=== PATIENT | female | born 1995 | race Native Hawaiian/Other Pacific Islander ===

== ENCOUNTER 2016-11-05 15:19 | Emergency (ER) | payer SELFPAY ==
[~2016-11-05] VITALS: Ht 157.5 cm; Wt 120.2 kg
[~2016-11-05 15:19] MED LIST: LISI5TAB10 PO
[2016-11-05 15:56] LABS: PLATELET COUNT 269 K/uL (152-353)
[2016-11-05 16:02] LABS: POTASSIUM 3.2 mmol/L (3.6-5.2); SODIUM 136 mmol/L (136-145)
[2016-11-05 16:45] VITALS: BP 130/75; TEMP 98
[2017-03-31] MEDS ORDERED: ACET-689 PO (20:54)
[2017-03-31] MEDS ORDERED: BACTRIM1 TAB PO (20:55)
[2017-03-31] MEDS ORDERED: CEPH500C20 PO (20:55)
[2017-03-31] MEDS ORDERED: ADVIL200 M1 OR (20:57)
[2017-03-31] MEDS ORDERED: [UNRECOGNIZED DRUG - CODE] EX (21:21)
== END 2016-11-05 16:45 | disposition home or self-care (01) ==
LOC: ED 15:19
DX: N39.0 Urinary tract infection, site not specified (principal)
CPT/HCPCS: 36415; 80053; 81000; 81025; 85027; 87077; 87086; 87088; 87186; 99283

== ENCOUNTER 2016-11-22 15:51 | Emergency (ER) | payer SELFPAY ==
[~2016-11-22] VITALS: Ht 157.5 cm; Wt 118.8 kg
[2016-11-22 18:18] LABS: POTASSIUM 3.6 mmol/L (3.6-5.2); SODIUM 137 mmol/L (136-145)
[2016-11-22 18:30] LABS: PLATELET COUNT 333 K/uL (152-353)
[2016-11-22 18:33] LABS: PARTIAL THROMBOPLASTIN TIME 25.9 SECONDS (24.5-33.6)
[2016-11-22 19:26] VITALS: BP 120/80; TEMP 98
[2017-03-31] MEDS ORDERED: ACET-689 PO (20:54)
[2017-03-31] MEDS ORDERED: BACTRIM1 TAB PO (20:55)
[2017-03-31] MEDS ORDERED: CEPH500C20 PO (20:55)
[2017-03-31] MEDS ORDERED: ADVIL200 M1 OR (20:57)
[2017-03-31] MEDS ORDERED: [UNRECOGNIZED DRUG - CODE] EX (21:21)
== END 2016-11-22 19:30 | disposition home or self-care (01) ==
LOC: ED 15:51
PROVIDERS: Emergency Medicine
DX: O46.90 Antepartum hemorrhage, unspecified, unspecified trimester (principal)
CPT/HCPCS: 36415; 80053; 80307; 81000; 82150; 83690; 84702; 85027; 85610; 85730; 99283; G0479

== ENCOUNTER 2016-12-06 21:16 | Emergency (ER) | payer SELFPAY ==
[~2016-12-06] VITALS: Ht 157.5 cm; Wt 117.9 kg
[2016-12-06 21:32] VITALS: BP 135/80; TEMP 98
[2017-03-31] MEDS ORDERED: ACET-689 PO (20:54)
[2017-03-31] MEDS ORDERED: CEPH500C20 PO (20:55)
[2017-03-31] MEDS ORDERED: BACTRIM1 TAB PO (20:55)
[2017-03-31] MEDS ORDERED: ADVIL200 M1 OR (20:57)
[2017-03-31] MEDS ORDERED: [UNRECOGNIZED DRUG - CODE] EX (21:21)
== END 2016-12-06 21:32 | disposition home or self-care (01) ==
LOC: ED 21:16
DX: R11.0 Nausea (principal); X58.XXXA Exposure to other specified factors, initial encounter; Y92.098 Other place in other non-institutional residence as the place of occurrence of the external cause
CPT/HCPCS: 99281

== ENCOUNTER 2017-01-20 13:42 | Emergency (ER) | payer OTHER ==
[~2017-01-20] VITALS: Ht 152.4 cm; Wt 117.9 kg
[2017-01-20 14:48] VITALS: BP 145/93; TEMP 98.3
[2017-03-31] MEDS ORDERED: ACET-689 PO (20:54)
[2017-03-31] MEDS ORDERED: CEPH500C20 PO (20:55)
[2017-03-31] MEDS ORDERED: BACTRIM1 TAB PO (20:55)
[2017-03-31] MEDS ORDERED: ADVIL200 M1 OR (20:57)
[2017-03-31] MEDS ORDERED: [UNRECOGNIZED DRUG - CODE] EX (21:21)
== END 2017-01-20 14:50 | disposition home or self-care (01) ==
LOC: ED 13:42
DX: R68.84 Jaw pain (principal); K02.9 Dental caries, unspecified; K04.7 Periapical abscess without sinus
CPT/HCPCS: 96372; 99283; J0696; J1200

== ENCOUNTER 2017-01-25 18:38 | Outpatient (CLI) | payer OTHER ==
[2017-03-31] MEDS ORDERED: ACET-689 PO (20:54)
[2017-03-31] MEDS ORDERED: CEPH500C20 PO (20:55)
[2017-03-31] MEDS ORDERED: BACTRIM1 TAB PO (20:55)
[2017-03-31] MEDS ORDERED: ADVIL200 M1 OR (20:57)
[2017-03-31] MEDS ORDERED: [UNRECOGNIZED DRUG - CODE] EX (21:21)
== END 2017-01-25 18:45 | disposition short-term general hospital (02) ==
LOC: AMB 18:38
DX: S60.521A Blister (nonthermal) of right hand, initial encounter (principal)
CPT/HCPCS: A0425; A0429

== ENCOUNTER 2017-02-06 10:45 | Emergency (ER) | payer OTHER ==
[~2017-02-06] VITALS: Ht 157.5 cm; Wt 113.4 kg
[2017-02-06 10:50] VITALS: TEMP 98.3
[2017-02-06 13:03] VITALS: BP 124/68
[2017-03-31] MEDS ORDERED: ACET-689 PO (20:54)
[2017-03-31] MEDS ORDERED: BACTRIM1 TAB PO (20:55)
[2017-03-31] MEDS ORDERED: CEPH500C20 PO (20:55)
[2017-03-31] MEDS ORDERED: ADVIL200 M1 OR (20:57)
[2017-03-31] MEDS ORDERED: [UNRECOGNIZED DRUG - CODE] EX (21:21)
== END 2017-02-06 13:01 | disposition home or self-care (01) ==
LOC: ED 10:45
DX: R51 Headache (principal); G91.9 Hydrocephalus, unspecified; G93.0 Cerebral cysts
CPT/HCPCS: 81000; 81025; 99283

== ENCOUNTER 2017-02-14 13:34 | Emergency (ER) | payer OTHER ==
[~2017-02-14] VITALS: Ht 157.5 cm; Wt 115.2 kg
[2017-02-14 15:32] VITALS: BP 130/75; TEMP 98
[2017-03-31] MEDS ORDERED: ACET-689 PO (20:54)
[2017-03-31] MEDS ORDERED: BACTRIM1 TAB PO (20:55)
[2017-03-31] MEDS ORDERED: CEPH500C20 PO (20:55)
[2017-03-31] MEDS ORDERED: ADVIL200 M1 OR (20:57)
[2017-03-31] MEDS ORDERED: [UNRECOGNIZED DRUG - CODE] EX (21:21)
== END 2017-02-14 15:37 | disposition home or self-care (01) ==
LOC: ED 13:34
DX: G43.909 Migraine, unspecified, not intractable, without status migrainosus (principal)
CPT/HCPCS: 96361; 96374; 96375; 99284; J1100; J1200; J1885; J2405

== ENCOUNTER 2017-02-28 15:49 | Emergency (ER) | payer OTHER ==
[~2017-02-28] VITALS: Ht 157.5 cm; Wt 115.2 kg
[2017-02-28 16:05] VITALS: TEMP 98.1
[2017-02-28 16:18] VITALS: BP 156/95
[2017-03-31] MEDS ORDERED: ACET-689 PO (20:54)
[2017-03-31] MEDS ORDERED: CEPH500C20 PO (20:55)
[2017-03-31] MEDS ORDERED: BACTRIM1 TAB PO (20:55)
[2017-03-31] MEDS ORDERED: ADVIL200 M1 OR (20:57)
[2017-03-31] MEDS ORDERED: [UNRECOGNIZED DRUG - CODE] EX (21:21)
== END 2017-02-28 16:26 | disposition home or self-care (01) ==
LOC: ED 15:49
DX: B35.9 Dermatophytosis, unspecified (principal)
CPT/HCPCS: 99281

== ENCOUNTER 2017-03-16 11:30 | Emergency (ER) | payer OTHER ==
[~2017-03-16] VITALS: Ht 157.5 cm; Wt 115.7 kg
[2017-03-16 11:45] VITALS: BP 134/66; TEMP 97.7
[2017-03-31] MEDS ORDERED: ACET-689 PO (20:54)
[2017-03-31] MEDS ORDERED: CEPH500C20 PO (20:55)
[2017-03-31] MEDS ORDERED: BACTRIM1 TAB PO (20:55)
[2017-03-31] MEDS ORDERED: ADVIL200 M1 OR (20:57)
[2017-03-31] MEDS ORDERED: [UNRECOGNIZED DRUG - CODE] EX (21:21)
== END 2017-03-16 13:50 | disposition home or self-care (01) ==
LOC: ED 11:30
DX: S20.211A Contusion of right front wall of thorax, initial encounter (principal); W19.XXXA Unspecified fall, initial encounter; Y92.098 Other place in other non-institutional residence as the place of occurrence of the external cause
CPT/HCPCS: 99282

== ENCOUNTER 2017-03-21 14:51 | Emergency (ER) | payer OTHER ==
[~2017-03-21] VITALS: Ht 157.5 cm; Wt 113.4 kg
[2017-03-21 16:37] VITALS: BP 125/72; TEMP 97.9
[2017-03-31] MEDS ORDERED: ACET-689 PO (20:54)
[2017-03-31] MEDS ORDERED: CEPH500C20 PO (20:55)
[2017-03-31] MEDS ORDERED: BACTRIM1 TAB PO (20:55)
[2017-03-31] MEDS ORDERED: ADVIL200 M1 OR (20:57)
[2017-03-31] MEDS ORDERED: [UNRECOGNIZED DRUG - CODE] EX (21:21)
== END 2017-03-21 16:39 | disposition home or self-care (01) ==
LOC: ED 14:51
DX: S80.01XA Contusion of right knee, initial encounter (principal); R51 Headache; W19.XXXA Unspecified fall, initial encounter
CPT/HCPCS: 96372; 99283; J2360

== ENCOUNTER 2017-03-27 17:23 | Emergency (ER) | payer OTHER ==
[~2017-03-27] VITALS: Ht 157.5 cm; Wt 113.4 kg
[2017-03-27 18:27] VITALS: BP 152/97; TEMP 98.3
[2017-03-31] MEDS ORDERED: ACET-689 PO (20:54)
[2017-03-31] MEDS ORDERED: CEPH500C20 PO (20:55)
[2017-03-31] MEDS ORDERED: BACTRIM1 TAB PO (20:55)
[2017-03-31] MEDS ORDERED: ADVIL200 M1 OR (20:57)
[2017-03-31] MEDS ORDERED: [UNRECOGNIZED DRUG - CODE] EX (21:21)
== END 2017-03-27 18:35 | disposition home or self-care (01) ==
LOC: ED 17:23
DX: L03.111 Cellulitis of right axilla (principal)
CPT/HCPCS: 99281

== ENCOUNTER 2017-05-19 14:03 | Emergency (ER) | payer OTHER ==
[~2017-05-19] VITALS: Ht 157.5 cm; Wt 113.4 kg
[~2017-05-19 14:03] MED LIST changes: +ACET-689 PO; +ADVIL200 M1 OR; +BACTRIM1 TAB PO; +CEPH500C20 PO; +[UNRECOGNIZED DRUG - CODE] EX
[2017-05-19 14:40] VITALS: BP 136/83; TEMP 97.3
== END 2017-05-19 14:45 | disposition home or self-care (01) ==
LOC: ED 14:03
DX: R21 Rash and other nonspecific skin eruption (principal)
CPT/HCPCS: 99281

== ENCOUNTER 2017-07-11 11:54 | Emergency (ER) | payer OTHER ==
[~2017-07-11] VITALS: Ht 157.5 cm; Wt 117.9 kg
[2017-07-11 12:00] VITALS: TEMP 98.6
[2017-07-11 12:55] VITALS: BP 143/84
== END 2017-07-11 12:55 | disposition home or self-care (01) ==
LOC: ED 11:54
DX: L03.211 Cellulitis of face (principal); K04.7 Periapical abscess without sinus
CPT/HCPCS: 99281

== ENCOUNTER 2017-08-09 17:05 | Emergency (ER) | payer OTHER ==
[~2017-08-09] VITALS: Ht 157.5 cm; Wt 117.9 kg
[2017-08-09 17:10] VITALS: TEMP 98
[2017-08-09] MEDS ORDERED: LISI10TA11 PO (17:20)
[2017-08-09 17:43] LABS: PLATELET COUNT 310 K/uL (152-353)
[2017-08-09 17:52] LABS: POTASSIUM 3.9 mmol/L (3.6-5.2); SODIUM 135 mmol/L (136-145)
[2017-08-09 18:13] VITALS: BP 137/93
== END 2017-08-09 18:15 | disposition home or self-care (01) ==
LOC: ED 17:05
DX: R10.9 Unspecified abdominal pain (principal)
CPT/HCPCS: 36415; 80053; 84702; 85027; 99283

== ENCOUNTER 2017-08-20 14:14 | Emergency (ER) | payer OTHER ==
[~2017-08-20] VITALS: Ht 157.5 cm; Wt 113.4 kg
[~2017-08-20 14:14] MED LIST changes: +LISI10TA11 PO
[2017-08-20 15:50] VITALS: BP 134/85; TEMP 97.8
== END 2017-08-20 15:50 | disposition home or self-care (01) ==
LOC: ED 14:14
DX: R51 Headache (principal); B34.9 Viral infection, unspecified; J02.9 Acute pharyngitis, unspecified
CPT/HCPCS: 81000; 81025; 96372; 99283; J1885; J2060; J2550

== ENCOUNTER 2017-09-11 10:52 | Emergency (ER) | payer OTHER ==
[~2017-09-11] VITALS: Ht 157.5 cm; Wt 117.9 kg
[2017-09-11 11:07] VITALS: BP 143/93; TEMP 98.1
== END 2017-09-11 11:45 | disposition home or self-care (01) ==
LOC: ED 10:52
DX: T78.49XA Other allergy, initial encounter (principal)
CPT/HCPCS: 99282

== ENCOUNTER 2017-09-12 19:29 | Emergency (ER) | payer OTHER ==
[~2017-09-12] VITALS: Ht 157.5 cm; Wt 127.9 kg
[2017-09-12 20:00] VITALS: BP 145/94; TEMP 98.5
== END 2017-09-12 20:05 | disposition home or self-care (01) ==
LOC: ED 19:29
DX: J32.0 Chronic maxillary sinusitis (principal)
CPT/HCPCS: 99281

== ENCOUNTER 2017-09-19 23:08 | Emergency (ER) | payer OTHER ==
[~2017-09-19] VITALS: Ht 157.5 cm; Wt 117.9 kg
[2017-09-20 00:42] VITALS: BP 136/85; TEMP 98.6
== END 2017-09-20 00:48 | disposition home or self-care (01) ==
LOC: ED 23:08
DX: R30.0 Dysuria (principal)
CPT/HCPCS: 81000; 99282

== ENCOUNTER 2017-09-24 13:28 | Emergency (ER) | payer OTHER ==
[~2017-09-24] VITALS: Ht 157.5 cm; Wt 117.9 kg
[2017-09-24 14:00] VITALS: BP 147/87; TEMP 98.3
[2017-09-24 15:33] LABS: PLATELET COUNT 308 K/uL (152-353)
[2017-09-24 15:42] LABS: SODIUM 136 mmol/L (136-145)
== END 2017-09-24 16:30 | disposition home or self-care (01) ==
LOC: ED 13:28
PROVIDERS: Family Medicine
DX: G91.9 Hydrocephalus, unspecified (principal)
CPT/HCPCS: 80048; 85027; 99283

== ENCOUNTER 2017-09-28 23:29 | Emergency (ER) | payer OTHER ==
[~2017-09-28] VITALS: Ht 157.5 cm; Wt 132.5 kg
[2017-09-29 00:40] VITALS: BP 148/67; TEMP 98.6
== END 2017-09-29 00:46 | disposition home or self-care (01) ==
LOC: ED 23:29
DX: K64.4 Residual hemorrhoidal skin tags (principal)
CPT/HCPCS: 99284

== ENCOUNTER 2017-10-02 21:44 | Emergency (ER) | payer OTHER ==
[~2017-10-02] VITALS: Ht 157.5 cm; Wt 117.9 kg
[2017-10-02 22:20] VITALS: BP 135/94; TEMP 98.9
== END 2017-10-02 22:24 | disposition home or self-care (01) ==
LOC: ED 21:44
DX: K02.9 Dental caries, unspecified (principal); K04.7 Periapical abscess without sinus
CPT/HCPCS: 99281

== ENCOUNTER 2017-10-15 16:50 | Outpatient (CLI) | payer OTHER | END 2017-10-15 16:59 | disposition short-term general hospital (02) | LOC: AMB 16:50 | DX: R05 Cough (principal); R09.81 Nasal congestion | CPT/HCPCS: A0425; A0429 ==

== ENCOUNTER 2017-10-15 17:12 | Emergency (ER) | payer OTHER ==
[~2017-10-15] VITALS: Ht 157.5 cm; Wt 117.9 kg
[2017-10-15 18:36] LABS: PLATELET COUNT 227 K/uL (152-353)
[2017-10-15 19:34] VITALS: BP 150/84; TEMP 98.5
== END 2017-10-15 19:34 | disposition home or self-care (01) ==
LOC: ED 17:12
DX: J06.9 Acute upper respiratory infection, unspecified (principal); B34.9 Viral infection, unspecified
CPT/HCPCS: 36415; 85027; 96372; 99283; J1885

== ENCOUNTER 2017-10-26 14:40 | Emergency (ER) | payer OTHER ==
[~2017-10-26] VITALS: Ht 157.5 cm; Wt 113.4 kg
[2017-10-26 14:33] VITALS: TEMP 97.8
[2017-10-26 16:21] LABS: PLATELET COUNT 343 K/uL (152-353)
[2017-10-26 16:24] LABS: POTASSIUM 4.3 mmol/L (3.6-5.2)
[2017-10-26 16:39] VITALS: BP 132/78
== END 2017-10-26 16:43 | disposition home or self-care (01) ==
LOC: ED 14:40
PROVIDERS: Emergency Medicine
DX: M54.42 Lumbago with sciatica, left side (principal); M54.10 Radiculopathy, site unspecified
CPT/HCPCS: 36415; 36416; 80053; 81000; 83735; 85027; 99283

== ENCOUNTER 2017-11-06 17:53 | Emergency (ER) | payer OTHER ==
[~2017-11-06] VITALS: Ht 157.5 cm; Wt 113.4 kg
[2017-11-06 18:40] LABS: PLATELET COUNT 312 K/uL (152-353)
[2017-11-06 18:49] LABS: POTASSIUM 3.4 mmol/L (3.6-5.2)
[2017-11-06 19:54] VITALS: BP 140/86; TEMP 97.9
== END 2017-11-06 19:55 | disposition home or self-care (01) ==
LOC: ED 17:53
DX: R07.89 Other chest pain (principal); L30.4 Erythema intertrigo
CPT/HCPCS: 80053; 85027; 93005; 99283

== ENCOUNTER 2017-11-25 23:00 | Emergency (ER) | payer OTHER ==
[~2017-11-25] VITALS: Ht 157.5 cm; Wt 113.4 kg
[2017-11-26 01:16] VITALS: BP 130/90; TEMP 98.1
== END 2017-11-26 01:17 | disposition home or self-care (01) ==
LOC: ED 23:00
DX: S93.492A Sprain of other ligament of left ankle, initial encounter (principal); X50.1XXA Overexertion from prolonged static or awkward postures, initial encounter; Y92.098 Other place in other non-institutional residence as the place of occurrence of the external cause
CPT/HCPCS: 99282

== ENCOUNTER 2017-12-23 19:57 | Emergency (ER) | payer OTHER ==
[~2017-12-23] VITALS: Ht 157.5 cm; Wt 113.4 kg
[2017-12-23 20:15] VITALS: BP 143/61; TEMP 98.5
== END 2017-12-23 20:45 | disposition home or self-care (01) ==
LOC: ED 19:57
DX: J02.9 Acute pharyngitis, unspecified (principal)
CPT/HCPCS: 99281

== ENCOUNTER 2017-12-26 15:14 | Emergency (ER) | payer OTHER ==
[~2017-12-26] VITALS: Ht 157.5 cm; Wt 113.4 kg
[2017-12-26 15:15] VITALS: BP 150/98; TEMP 97.9
== END 2017-12-26 15:45 | disposition home or self-care (01) ==
LOC: ED 15:14
DX: R21 Rash and other nonspecific skin eruption (principal)

== ENCOUNTER 2018-01-20 13:46 | Outpatient (CLI) | payer OTHER | END 2018-01-20 13:55 | disposition short-term general hospital (02) | LOC: AMB 13:46 | DX: R51 Headache (principal) | CPT/HCPCS: A0425; A0429 ==

== ENCOUNTER 2018-01-20 13:58 | Emergency (ER) | payer OTHER ==
[~2018-01-20] VITALS: Ht 157.5 cm; Wt 113.4 kg
== END 2018-01-20 15:05 | disposition home or self-care (01) ==
LOC: ED 13:58
DX: R51 Headache (principal); R30.0 Dysuria
CPT/HCPCS: 99281

== ENCOUNTER 2018-01-24 23:05 | Outpatient (CLI) | payer OTHER ==
[2018-01-24 23:52] LABS: PLATELET COUNT 299 K/uL (152-353)
[2018-01-25 01:04] LABS: POTASSIUM 3.9 mmol/L (3.6-5.2)
== END 2018-01-24 23:50 | disposition home or self-care (01) ==
LOC: LABW 23:05
PROVIDERS: Internal Medicine
DX: I10 Essential (primary) hypertension (principal); R73.09 Other abnormal glucose; R79.89 Other specified abnormal findings of blood chemistry
CPT/HCPCS: 36415; 80053; 81000; 82088; 82306; 82436; 82550; 82570; 82607; 82728; 82746; 83036; 83540; 83550; 83735; 83835; 83970; 84100; 84133; 84155; 84244; 84300; 84439; 84443; 84550; 85027; 86039

== ENCOUNTER 2018-03-21 00:03 | Emergency (ER) | payer OTHER ==
[~2018-03-21] VITALS: Ht 157.5 cm; Wt 146.1 kg
[2018-03-21 00:20] VITALS: BP 145/83; TEMP 98
== END 2018-03-21 00:36 | disposition home or self-care (01) ==
LOC: ED 00:03
DX: R51 Headache (principal)
CPT/HCPCS: 99281

== ENCOUNTER 2018-08-11 13:10 | Outpatient (CLI) | payer OTHER | END 2018-08-11 13:12 | disposition short-term general hospital (02) | LOC: AMB 13:10 | DX: R11.10 Vomiting, unspecified (principal) | CPT/HCPCS: A0425; A0429 ==

== ENCOUNTER 2018-08-11 13:21 | Emergency (ER) | payer OTHER ==
[~2018-08-11] VITALS: Ht 157.5 cm; Wt 146.1 kg
[2018-08-11 13:22] VITALS: TEMP 97
[2018-08-11 14:34] LABS: PLATELET COUNT 284 K/uL (152-353)
[2018-08-11 14:38] LABS: POTASSIUM 3.7 mmol/L (3.6-5.2)
[2018-08-11 15:13] VITALS: BP 120/88
== END 2018-08-11 15:15 | disposition home or self-care (01) ==
LOC: ED 13:21
DX: R11.2 Nausea with vomiting, unspecified (principal)
CPT/HCPCS: 80053; 81000; 81025; 85027; 99283

== ENCOUNTER 2018-09-04 19:58 | Outpatient (CLI) | payer OTHER | END 2018-09-04 20:00 | disposition short-term general hospital (02) | LOC: AMB 19:58 | DX: M54.89 Other dorsalgia (principal) | CPT/HCPCS: A0425; A0429 ==

== ENCOUNTER 2018-09-04 20:09 | Emergency (ER) | payer OTHER ==
[~2018-09-04] VITALS: Ht 157.5 cm; Wt 146.1 kg
[2018-09-04 22:25] VITALS: BP 151/81; TEMP 98
== END 2018-09-04 22:36 | disposition home or self-care (01) ==
LOC: ED 20:09
DX: M54.5 Low back pain (principal); M47.896 Other spondylosis, lumbar region
CPT/HCPCS: 81000; 99283; J1885

== ENCOUNTER 2018-09-28 10:50 | Outpatient (CLI) | payer OTHER | END 2018-09-28 10:52 | disposition short-term general hospital (02) | LOC: AMB 10:50 | DX: M25.531 Pain in right wrist (principal) | CPT/HCPCS: A0425; A0429 ==

== ENCOUNTER 2018-09-28 10:55 | Emergency (ER) | payer OTHER ==
[~2018-09-28] VITALS: Ht 157.5 cm; Wt 146.1 kg
[2018-09-28 12:00] VITALS: BP 128/86; TEMP 98
== END 2018-09-28 12:11 | disposition home or self-care (01) ==
LOC: ED 10:55
DX: S63.591A Other specified sprain of right wrist, initial encounter (principal); S63.681A Other sprain of right thumb, initial encounter; W18.39XA Other fall on same level, initial encounter; Y92.89 Other specified places as the place of occurrence of the external cause
CPT/HCPCS: 99283

== ENCOUNTER 2019-03-03 17:34 | Emergency (ER) | payer OTHER ==
[~2019-03-03] VITALS: Ht 157.5 cm; Wt 146.1 kg
[2019-03-03] MEDS ORDERED: DOXYCYCL HYC100 MG PO (17:53)
[2019-03-03 18:20] VITALS: BP 132/84; TEMP 97.6
== END 2019-03-03 18:20 | disposition home or self-care (01) ==
LOC: ED 17:34
DX: S61.211A Laceration without foreign body of left index finger without damage to nail, initial encounter (principal); L08.9 Local infection of the skin and subcutaneous tissue, unspecified; W22.8XXA Striking against or struck by other objects, initial encounter
CPT/HCPCS: 99282

== ENCOUNTER 2019-04-27 19:25 | Emergency (ER) | payer OTHER ==
[~2019-04-27] VITALS: Ht 157.5 cm; Wt 146.1 kg
[~2019-04-27 19:25] MED LIST changes: +DOXYCYCL HYC100 MG PO
[2019-04-27 20:07] VITALS: BP 164/90; TEMP 98.2
== END 2019-04-27 20:09 | disposition home or self-care (01) ==
LOC: ED 19:25
DX: B37.3 Candidiasis of vulva and vagina (principal)
CPT/HCPCS: 99281

== ENCOUNTER 2019-05-09 23:28 | Emergency (ER) | payer OTHER ==
[~2019-05-09] VITALS: Ht 157.5 cm; Wt 146.1 kg
[2019-05-10 00:35] LABS: PLATELET COUNT 302 K/uL (152-353)
[2019-05-10 00:48] LABS: POTASSIUM 3.6 mmol/L (3.6-5.2); SODIUM 137 mmol/L (136-145)
[2019-05-10 00:54] LABS: PARTIAL THROMBOPLASTIN TIME 22.5 SECONDS (24.5-33.6)
[2019-05-10 03:08] VITALS: BP 122/64; TEMP 98.2
== END 2019-05-10 03:08 | disposition home or self-care (01) ==
LOC: ED 23:28
PROVIDERS: Hospitalist
DX: F41.1 Generalized anxiety disorder (principal); O23.43 Unspecified infection of urinary tract in pregnancy, third trimester; G43.909 Migraine, unspecified, not intractable, without status migrainosus; R00.0 Tachycardia, unspecified
CPT/HCPCS: 36415; 80053; 81000; 81025; 82550; 83880; 84484; 85027; 85379; 85610; 85730; 87077; 87086; 87088; 87186; 93005; 96374; 96375; 99284; J1200; J2405

== ENCOUNTER 2019-12-27 14:56 | Emergency (ER) | payer OTHER ==
[~2019-12-27] VITALS: Ht 157.5 cm; Wt 146.1 kg
[2019-12-27 15:10] VITALS: TEMP 98.2
[2019-12-27 15:58] LABS: PLATELET COUNT 324 K/uL (152-353)
[2019-12-27 16:55] VITALS: BP 155/72
== END 2019-12-27 16:55 | disposition home or self-care (01) ==
LOC: ED 14:56
PROVIDERS: Emergency Medicine
DX: J06.9 Acute upper respiratory infection, unspecified (principal); F17.210 Nicotine dependence, cigarettes, uncomplicated
CPT/HCPCS: 36415; 80053; 85027; 87502; 87651; 99283

== ENCOUNTER 2020-02-21 15:30 | Emergency (ER) | payer OTHER ==
[~2020-02-21] VITALS: Ht 157.5 cm; Wt 146.1 kg
[2020-02-21 15:30] VITALS: TEMP 97.5
[2020-02-21 16:44] VITALS: BP 132/80
== END 2020-02-21 16:45 | disposition home or self-care (01) ==
LOC: ED 15:30
DX: S39.012A Strain of muscle, fascia and tendon of lower back, initial encounter (principal); R51 Headache; X58.XXXA Exposure to other specified factors, initial encounter; Y92.89 Other specified places as the place of occurrence of the external cause
CPT/HCPCS: 96372; 99283; J1885

== ENCOUNTER 2020-09-04 13:32 | Emergency (ER) | payer OTHER ==
[~2020-09-04] VITALS: Ht 157.5 cm; Wt 146.1 kg
[2020-09-04 13:32] VITALS: TEMP 99.1
[2020-09-04 15:02] VITALS: BP 150/89
== END 2020-09-04 15:04 | disposition home or self-care (01) ==
LOC: ED 13:32
DX: K04.7 Periapical abscess without sinus (principal); I10 Essential (primary) hypertension; F17.210 Nicotine dependence, cigarettes, uncomplicated
CPT/HCPCS: 96372; 99283; 99284; J1885

== ENCOUNTER 2020-11-14 13:29 | Emergency (ER) | payer OTHER ==
[~2020-11-14] VITALS: Ht 157.5 cm; Wt 146.1 kg
[2020-11-14 18:20] VITALS: BP 152/95; TEMP 98.6
== END 2020-11-14 18:20 | disposition home or self-care (01) ==
LOC: ED 13:29
DX: N30.11 Interstitial cystitis (chronic) with hematuria (principal); S63.591A Other specified sprain of right wrist, initial encounter; W18.39XA Other fall on same level, initial encounter; Y92.89 Other specified places as the place of occurrence of the external cause
CPT/HCPCS: 81000; 81025; 96372; 99283; J1885; J2405

== ENCOUNTER 2021-01-02 08:36 | Emergency (ER) | payer OTHER ==
[~2021-01-02] VITALS: Ht 157.5 cm; Wt 97.5 kg
[2021-01-02 08:42] VITALS: TEMP 97.3
[2021-01-02 09:45] VITALS: BP 144/89
== END 2021-01-02 09:56 | disposition home or self-care (01) ==
LOC: ED 08:36
DX: M25.531 Pain in right wrist (principal); M79.671 Pain in right foot; L84 Corns and callosities
CPT/HCPCS: 96372; 99283; J1885

== ENCOUNTER 2022-09-19 09:30 | Emergency (ER) | payer OTHER ==
[~2022-09-19] VITALS: Ht 157.5 cm; Wt 158.8 kg
[2022-09-19 09:30] VITALS: TEMP 97.9
[2022-09-19 10:14] LABS: PLATELET COUNT 313 K/uL (152-353)
[2022-09-19 10:18] LABS: POTASSIUM 4.1 mmol/L (3.6-5.2)
[2022-09-19 10:30] VITALS: BP 145/95
== END 2022-09-19 10:39 | disposition home or self-care (01) ==
LOC: ED 09:30
PROVIDERS: Emergency Medicine
DX: F41.8 Other specified anxiety disorders (principal); R22.0 Localized swelling, mass and lump, head; I10 Essential (primary) hypertension; F17.210 Nicotine dependence, cigarettes, uncomplicated
CPT/HCPCS: 36415; 80048; 85027; 99283

== ENCOUNTER 2022-09-24 10:22 | Emergency (ER) | payer OTHER ==
[~2022-09-24] VITALS: Ht 157.5 cm; Wt 158.8 kg
[2022-09-24 10:22] VITALS: BP 144/84; TEMP 98.2
== END 2022-09-24 11:25 | disposition home or self-care (01) ==
LOC: ED 10:22
DX: S93.491A Sprain of other ligament of right ankle, initial encounter (principal); X50.1XXA Overexertion from prolonged static or awkward postures, initial encounter; Y93.01 Activity, walking, marching and hiking; Y92.89 Other specified places as the place of occurrence of the external cause
CPT/HCPCS: 99282; J1885

== ENCOUNTER 2022-10-27 13:55 | Emergency (ER) | payer OTHER ==
[~2022-10-27] VITALS: Ht 157.5 cm; Wt 158.8 kg
[2022-10-27 13:55] VITALS: BP 133/87; TEMP 97.6
== END 2022-10-27 15:31 | disposition home or self-care (01) ==
LOC: ED 13:55
DX: S50.01XA Contusion of right elbow, initial encounter (principal); W54.1XXA Struck by dog, initial encounter; Y92.89 Other specified places as the place of occurrence of the external cause
CPT/HCPCS: 81025; 96372; 99283; J1885

== ENCOUNTER 2023-01-22 19:20 | Emergency (ER) | payer OTHER ==
[~2023-01-22] VITALS: Ht 157.5 cm; Wt 104.3 kg
[2023-01-22 19:20] VITALS: BP 172/110; TEMP 98.4
== END 2023-01-22 21:08 | disposition home or self-care (01) ==
LOC: ED 19:20
DX: S09.8XXA Other specified injuries of head, initial encounter (principal); Y04.2XXA Assault by strike against or bumped into by another person, initial encounter; Y92.512 Supermarket, store or market as the place of occurrence of the external cause
CPT/HCPCS: 81025; 99283

== ENCOUNTER 2023-01-23 14:02 | Emergency (ER) | payer OTHER ==
[~2023-01-23] VITALS: Ht 157.5 cm; Wt 104.3 kg
[2023-01-23 14:09] VITALS: BP 163/80; TEMP 98
== END 2023-01-23 15:30 | disposition home or self-care (01) ==
LOC: ED 14:02
DX: G44.209 Tension-type headache, unspecified, not intractable (principal); G31.84 Mild cognitive impairment of uncertain or unknown etiology
CPT/HCPCS: 96372; 99282; J1885

== ENCOUNTER 2023-02-10 04:09 | Emergency (ER) | payer OTHER ==
[~2023-02-10] VITALS: Ht 157.5 cm; Wt 113.4 kg
[2023-02-10 04:13] VITALS: BP 154/127; TEMP 98.9
== END 2023-02-10 07:04 | disposition home or self-care (01) ==
LOC: ED 04:09
DX: N39.0 Urinary tract infection, site not specified (principal); E66.01 Morbid (severe) obesity due to excess calories
CPT/HCPCS: 81000; 87077; 87086; 87088; 87186; 96372; 99282; J1885

== ENCOUNTER 2023-02-19 08:48 | Emergency (ER) | payer OTHER ==
[~2023-02-19] VITALS: Ht 157.5 cm; Wt 136.1 kg
[2023-02-19 10:03] VITALS: BP 145/95; TEMP 98.1
== END 2023-02-19 10:03 | disposition home or self-care (01) ==
LOC: ED 08:48
DX: N39.0 Urinary tract infection, site not specified (principal)
CPT/HCPCS: 80307; 81000; 81025; 87077; 87086; 87088; 87186; 99283

== ENCOUNTER 2023-03-12 15:57 | Emergency (ER) | payer OTHER ==
[~2023-03-12] VITALS: Ht 157.5 cm; Wt 136.1 kg
[2023-03-12 15:57] VITALS: BP 157/84; TEMP 97
[~2023-03-12 15:57] MED LIST changes: +904272561 PO; +FLUC150T PO
[2023-03-12 16:13] LABS: PLATELET COUNT 332 K/uL (152-353)
[2023-03-12 16:22] LABS: POTASSIUM 3.6 mmol/L (3.6-5.2)
== END 2023-03-12 17:32 | disposition home or self-care (01) ==
LOC: ED 15:57
PROVIDERS: Family Medicine
DX: R30.0 Dysuria (principal); L03.115 Cellulitis of right lower limb
CPT/HCPCS: 80053; 85027; 99283

== ENCOUNTER 2023-03-15 13:49 | Emergency (ER) | payer OTHER ==
[~2023-03-15] VITALS: Ht 157.5 cm; Wt 127.5 kg
[2023-03-15 17:30] VITALS: TEMP 98.9
[2023-03-15 17:45] VITALS: BP 122/71
== END 2023-03-15 17:45 | disposition home or self-care (01) ==
LOC: ED 13:49
DX: S80.12XA Contusion of left lower leg, initial encounter (principal); S80.11XA Contusion of right lower leg, initial encounter; V09.9XXA Pedestrian injured in unspecified transport accident, initial encounter; E66.9 Obesity, unspecified
CPT/HCPCS: 99283

== ENCOUNTER 2023-03-17 09:30 | Emergency (ER) | payer OTHER ==
[~2023-03-17] VITALS: Ht 157.5 cm; Wt 127.0 kg
[2023-03-17 10:25] LABS: PLATELET COUNT 257 K/uL (152-353)
[2023-03-17 10:33] LABS: POTASSIUM 3.4 mmol/L (3.6-5.2)
[2023-03-17 12:15] VITALS: BP 153/90; TEMP 97.2
== END 2023-03-17 12:15 | disposition home or self-care (01) ==
LOC: ED 09:30
PROVIDERS: Family Medicine
DX: M94.0 Chondrocostal junction syndrome [Tietze] (principal)
CPT/HCPCS: 80053; 84484; 85027; 93005; 99284

== ENCOUNTER 2023-04-04 20:33 | Emergency (ER) | payer OTHER ==
[~2023-04-04] VITALS: Ht 157.5 cm; Wt 90.7 kg
[2023-04-04 21:30] VITALS: BP 145/50; TEMP 98.3
== END 2023-04-04 21:30 | disposition home or self-care (01) ==
LOC: ED 20:33
DX: S33.5XXA Sprain of ligaments of lumbar spine, initial encounter (principal); E66.01 Morbid (severe) obesity due to excess calories; W01.0XXA Fall on same level from slipping, tripping and stumbling without subsequent striking against object, initial encounter; F17.210 Nicotine dependence, cigarettes, uncomplicated; F12.90 Cannabis use, unspecified, uncomplicated
CPT/HCPCS: 96372; 99282; J1885

== ENCOUNTER 2023-04-10 16:58 | Emergency (ER) | payer OTHER ==
[~2023-04-10] VITALS: Ht 157.5 cm; Wt 120.2 kg
[2023-04-10 17:00] VITALS: BP 142/82; TEMP 97.8
== END 2023-04-10 18:00 | disposition home or self-care (01) ==
LOC: ED 16:58
DX: L08.9 Local infection of the skin and subcutaneous tissue, unspecified (principal)
CPT/HCPCS: 99283; J1100

== ENCOUNTER 2023-04-16 17:28 | Emergency (ER) | payer OTHER ==
[~2023-04-16] VITALS: Ht 157.5 cm; Wt 120.2 kg
[2023-04-16 17:35] VITALS: TEMP 98.2
[2023-04-16 18:53] LABS: PLATELET COUNT 289 K/uL (152-353)
[2023-04-16 20:45] VITALS: BP 167/81
== END 2023-04-16 20:45 | disposition home or self-care (01) ==
LOC: ED 17:28
PROVIDERS: Family Medicine
DX: R51.9 Headache, unspecified (principal); K06.9 Disorder of gingiva and edentulous alveolar ridge, unspecified; E66.9 Obesity, unspecified; Z88.0 Allergy status to penicillin
CPT/HCPCS: 36416; 85027; 99282

== ENCOUNTER 2023-04-18 20:30 | Emergency (ER) | payer OTHER ==
[~2023-04-18] VITALS: Ht 157.5 cm; Wt 94.8 kg
[2023-04-18 20:59] VITALS: BP 137/82; TEMP 97.3
== END 2023-04-18 21:09 | disposition home or self-care (01) ==
LOC: ED 20:30
DX: R21 Rash and other nonspecific skin eruption (principal); L74.0 Miliaria rubra; L29.9 Pruritus, unspecified; E66.01 Morbid (severe) obesity due to excess calories
CPT/HCPCS: 99282

== ENCOUNTER 2023-04-28 18:53 | Emergency (ER) | payer OTHER ==
[~2023-04-28] VITALS: Ht 157.5 cm; Wt 119.7 kg
[2023-04-28 19:10] VITALS: BP 162/97; TEMP 98.3
== END 2023-04-28 21:25 | disposition home or self-care (01) ==
LOC: ED 18:53
DX: E86.0 Dehydration (principal)
CPT/HCPCS: 96360; 99284

== ENCOUNTER 2023-05-01 23:41 | Emergency (ER) | payer OTHER ==
[~2023-05-01] VITALS: Ht 157.5 cm; Wt 112.9 kg
[2023-05-01 23:50] VITALS: TEMP 97.9
[2023-05-02 01:30] VITALS: BP 134/71
[2023-05-02] MEDS ORDERED: LISI10TA11 PO (04:09)
[2023-05-02] MEDS ORDERED: TRIDERM0.1 % EX (04:09)
== END 2023-05-02 01:40 | disposition home or self-care (01) ==
LOC: ED 23:41
DX: R51.9 Headache, unspecified (principal)
CPT/HCPCS: 96372; 99282; J1885

== ENCOUNTER 2023-05-02 20:49 | Emergency (ER) | payer OTHER ==
[~2023-05-02] VITALS: Ht 157.5 cm; Wt 119.8 kg
[~2023-05-02 20:49] MED LIST changes: +TRIDERM0.1 % EX
[2023-05-02 21:05] VITALS: TEMP 98.1
[2023-05-02 22:44] VITALS: BP 124/81
== END 2023-05-02 22:44 | disposition home or self-care (01) ==
LOC: ED 20:49
DX: S93.402A Sprain of unspecified ligament of left ankle, initial encounter (principal); E66.9 Obesity, unspecified; L03.90 Cellulitis, unspecified
CPT/HCPCS: 96372; 99282; J1885